=== PATIENT | female | born 1935 | race Caucasian/White ===

== ENCOUNTER 2017-01-20 20:34 | Emergency (ER) | payer MEDICARE, BC ==
[~2017-01-20] VITALS: Ht 162.6 cm; Wt 70.0 kg
[2017-01-20 20:40] VITALS: BP 134/61; PULSE 62; RESP 18; TEMP 98.1; O2SAT 95
--- NOTE | 2017-01-20 21:38 | PD ---
HPI Chief Complaint: Injury Time Seen by Provider: 21:35 Travel History International Travel<30 days: No Contact w/Intl Traveler<30days: No Traveled to known affect area: No History of Present Illness HPI 81-year-old female that presents to the ED for evaluation of trip and fall. Patient had trip and fall in the parking lot. Patient landed on her left shoulder. Per patient she has 8 out of 10 pain in the shoulder. Pain with movement. Per patient the pain is to the elbow as well. No head injury or loss of consciousness. She does take blood thinners. No hip or knee pain. No ankle pain. No other medical issues. Patient was given morphine on the way here and did improve her pain to a 6. No numbness, tilling, weakness. No prior injuries to the shoulder. No back pain. No abdominal pain. No back pain or neck pain. He was put on a backboard and cervical collar by ambulance. PFSH Past Medical History Hx Anticoagulant Therapy: Yes ?: Not Social History Alcohol Use: No Tobacco Use: No Substance Use: No Allergies-Medications (Allergen,Severity, Reaction): Coded Allergies: No Known Allergies (Unverified , 01/20/17) Review of Systems Except as stated in HPI: all other systems reviewed are Neg Physical Exam Narrative GENERAL: SKIN: Warm and dry. HEAD: Atraumatic. Normocephalic. EYES: Pupils equal and round. No scleral icterus. No injection or drainage. ENT: No nasal bleeding or discharge. Mucous membranes pink and moist. Tongue is midline. No uvula deviation. NECK: Trachea midline. No JVD. CARDIOVASCULAR: Regular rate and rhythm. No murmurs, S3, S4. RESPIRATORY: No accessory muscle use. Clear to auscultation. Breath sounds equal bilaterally. GASTROINTESTINAL: Abdomen soft, non-tender, nondistended. Hepatic and splenic margins not palpable. MUSCULOSKELETAL: Extremities without clubbing, cyanosis, or edema. No obvious deformities. Full range of motion of all extremities with exception of the left shoulder. Patient does have pain with abduction. Tenderness to palpation as well as bruising noted on the left shoulder. Pupils pulses bilaterally. Full range of motion of the wrist and hand. NEUROLOGICAL: Awake and alert. No obvious cranial nerve deficits. Motor grossly within normal limits. Five out of 5 muscle strength in the arms and legs. Normal speech. PSYCHIATRIC: Appropriate mood and affect; insight and judgment normal. Data Data Last Documented VS Vital Signs Date Time Temp Pulse Resp B/P Pulse Ox O2 Delivery O2 Flow Rate FiO2 01/20/17 21:42 98 01/20/17 20:40 98.1 62 18 134/61 Orders Forearm (2vws) (01/20/17 20:45) Humerus (Min 2vws) (01/20/17 20:45) Ice/Cold Pack (01/20/17 20:45) Chest, Single Ap (01/20/17 20:45) Ct Brain W/O Iv Contrast(Rout) (01/20/17 20:46) Ct Cerv Spine W/O Contrast (01/20/17 20:46) Splint Or Brace Apply/Monitor (01/20/17 21:54) Morphine Inj (Morphine Inj) (01/20/17 22:15) Ondansetron Inj (Zofran Inj) (01/20/17 22:15) MDM Medical Decision Making Medical Screen Exam Complete: Yes Emergency Medical Condition: Yes Medical Record Reviewed: Yes Interpretation(s) Last Impressions Chest X-Ray 01/20/172044 Signed Impressions: Service Date/Time: Friday, January 20, 2017 21:19 - CONCLUSION: 1. Left humeral head fracture. 2. Prominent retrocardiac density may represent hiatus hernia. 3. No evidence of pneumothorax. Aba Infante MD Differential Diagnosis Fracture versus sprain versus strain versus bruise versus contusion Narrative Course 81-year-old female that presents to the ED for evaluation of trip and fall. Patient was properly examined and was found to have signs and symptoms of possible bony injuries. Imaging and x-rays were ordered. This showed small humeral head fracture. Case will be signed out to my attending pending imaging results including CAT scan that have not been read at the writing of this note. Diagnosis Primary Impression: Fracture of humeral head, left, closed Qualified Code: S42.292A - Fracture of humeral head, left, closed, initial encounter Jesus Hines Jan 20, 2017 21:37
--- NOTE | 2017-01-20 22:03 | RADRPT ---
EXAM DATE/TIME: 01/20/2017 21:19 [facility] COMPARISON: No previous studies available for comparison. INDICATIONS : Fell onto shoulder. MEDICAL HISTORY : Chronic obstructive pulmonary disease. AFIB SURGICAL HISTORY : None. ENCOUNTER: Initial ACUITY: 1 day PAIN SCORE: 0/10 LOCATION: Bilateral chest FINDINGS: No consolidative infiltrate seen. No evidence of pleural effusion. There is a prominent retrocardia c opacity which measures in excess of 7 cm, possibly representing a hiatus hernia. The heart is norm al size. Both hemidiaphragms well delineated. Left humeral head fracture. CONCLUSION: 1. Left humeral head fracture. 2. Prominent retrocardiac density may represent hiatus hernia. 3. No evidence of pneumothorax. Aba Infante MD on January 20, 2017 at 22:01 Board Certified Radiologist. This report was verified electronically.
[2017-01-20] MEDS ORDERED: ONDANSETRON HCL 4 MG/2 ML VIAL IV PUSH ONE (22:15)
[2017-01-20] MEDS ORDERED: MORPHINE SULFATE 4 MG/ML INJ IV PUSH ONE (22:15)
--- NOTE | 2017-01-20 22:34 | RADRPT ---
EXAM DATE/TIME: 01/20/2017 21:23 [facility] COMPARISON: No previous studies available for comparison. INDICATIONS : Patient fell onto shoulder. MEDICAL HISTORY : Chronic obstructive pulmonary disease. SURGICAL HISTORY : None. ENCOUNTER: Initial ACUITY: 1 day PAIN SCORE: 10/10 LOCATION: Left Shoulder. FINDINGS: There are several fractures in the proximal humerus involving the greater tuberosity, anatomic head, surgical head, and lesser tuberosity. There is moderate angulation of the humeral head posteriorly. No definite evidence of dislocation. The glenoid appears grossly intact. CONCLUSION: Comminuted fracture of the proximal humerus. Aba Infante MD on January 20, 2017 at 22:31 Board Certified Radiologist. This report was verified electronically.
--- NOTE | 2017-01-20 22:47 | RADRPT ---
EXAM DATE/TIME: 01/20/2017 21:37 [facility] COMPARISON: No previous studies available for comparison. INDICATIONS : Patient fell onto shoulder. MEDICAL HISTORY : Chronic obstructive pulmonary disease. SURGICAL HISTORY : None. ENCOUNTER: Initial ACUITY: 1 day PAIN SCORE: 10/10 LOCATION: Left Shoulder. FINDINGS: Two view examination of the left forearm demonstrates no evidence of fracture or dislocation. Bony m ineralization is normal. The soft tissue structures are intact. CONCLUSION: The radius and ulna appear grossly intact. Aba Infante MD on January 20, 2017 at 22:45 Board Certified Radiologist. This report was verified electronically.
--- NOTE | 2017-01-20 22:52 | RADRPT ---
EXAM DATE/TIME: 01/20/2017 21:37 [facility] COMPARISON: No previous studies available for comparison. INDICATIONS : Trauma, trip and fall. RADIATION DOSE: 42.50 CTDIvol (mGy) MEDICAL HISTORY : None SURGICAL HISTORY : None. ENCOUNTER: Initial ACUITY: 1 day PAIN SCALE: 3/10 LOCATION: neck TECHNIQUE: Volumetric scanning of the cervical spine was performed. Multiplanar reconstructions in the sagittal, coronal and oblique axial planes were performed. Using automated exposure control and adjustment o f the mA and/or kV according to patient size, radiation dose was kept as low as reasonably achievable to obtain optimal diagnostic quality images. DICOM format image data is available electronically f or review and comparison. FINDINGS: There is straightening of the cervical lordosis from C2-C5. At C5-6, there is marked narrowing of th e interspace and prominent sclerosis on both sides with prominent anterior and posterior osteophytes. There is mild retrolisthesis of C5 with respect to C6, approximately 2 mm. No evidence of acute fr acture. The posterior elements are in alignment with moderate hypertrophic changes seen in the facet joints C3-C5. The spinous processes are intact. Atlantoaxial articulation is intact. On axial imaging, there is evidence of mild bony neuroforaminal stenosis on the left side at C4-5, mo derate stenosis at C5-6 bilaterally and mild stenosis on the right at C6-7. No fractures seen. Vacu um phenomenon is present adjacent to the right costovertebral junction of T1. CONCLUSION: 1. No evidence of acute fracture. 2. 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 3. Moderate bilateral bony neural foraminal stenosis as described above. Aba Infante MD on January 20, 2017 at 22:45 Board Certified Radiologist. This report was verified electronically.
--- NOTE | 2017-01-20 22:52 | RADRPT ---
EXAM DATE/TIME: 01/20/2017 21:37 [facility] COMPARISON: No previous studies available for comparison. INDICATIONS : Trauma, trip and fall. RADIATION DOSE: 49.83 CTDIvol (mGy) MEDICAL HISTORY : None SURGICAL HISTORY : None. ENCOUNTER: Initial ACUITY: 1 day PAIN SCALE: 3/10 LOCATION: cranial TECHNIQUE: Multiple contiguous axial images were obtained of the head. Using automated exposure control and adj ustment of the mA and/or kV according to patient size, radiation dose was kept as low as reasonably a chievable to obtain optimal diagnostic quality images. DICOM format image data is available electro nically for review and comparison. FINDINGS: CEREBRUM: The ventricles are normal for age. No evidence of midline shift, mass lesion, hemorrhage or acute in farction. No extra-axial fluid collections are seen. POSTERIOR FOSSA: The cerebellum and brainstem are intact. The 4th ventricle is midline. The cerebellopontine angle i s unremarkable. EXTRACRANIAL: The visualized portion of the orbits is intact. SKULL: The calvaria is intact. No evidence of skull fracture. CONCLUSION: Age-appropriate atrophy. No acute findings. Aba Infante MD on January 20, 2017 at 22:50 Board Certified Radiologist. This report was verified electronically.
--- NOTE | 2017-01-20 22:54 | PD ---
Data Data Last Documented VS Vital Signs Date Time Temp Pulse Resp B/P Pulse Ox O2 Delivery O2 Flow Rate FiO2 01/20/17 21:42 98 01/20/17 20:40 98.1 62 18 134/61 Orders Forearm (2vws) (01/20/17 20:45) Humerus (Min 2vws) (01/20/17 20:45) Ice/Cold Pack (01/20/17 20:45) Chest, Single Ap (01/20/17 20:45) Ct Brain W/O Iv Contrast(Rout) (01/20/17 20:46) Ct Cerv Spine W/O Contrast (01/20/17 20:46) Splint Or Brace Apply/Monitor (01/20/17 21:54) Morphine Inj (Morphine Inj) (01/20/17 22:15) Ondansetron Inj (Zofran Inj) (01/20/17 22:15) Sling Cradle Arm (01/20/17 ) MDM Medical Record Reviewed: Yes Supervised Visit with DAWIT: No Interpretation(s) Last Impressions Head CT 01/20/172045 Signed Impressions: Service Date/Time: Friday, January 20, 2017 21:37 - CONCLUSION: Age-appropriate atrophy. No acute findings. Aba Infante MD Cervical Spine CT 01/20/172045 Signed Impressions: Service Date/Time: Friday, January 20, 2017 21:37 - CONCLUSION: 1. No evidence of acute fracture. 2. Advanced discogenic degenerative changes at the C5-6 level with marked interspace narrowing, prominent sclerosis of the adjacent vertebral bodies, and mild retrolisthesis of C5 with respect to C6. 3. Moderate bilateral bony neural foraminal stenosis as described above. Aba Infante MD Radius/Ulna X-Ray 01/20/172044 Signed Impressions: Service Date/Time: Friday, January 20, 2017 21:37 - CONCLUSION: The radius and ulna appear grossly intact. Aba Infante MD Humerus X-Ray 01/20/172044 Signed Impressions: Service Date/Time: Friday, January 20, 2017 21:23 - CONCLUSION: Comminuted fracture of the proximal humerus. Aba Infante MD Chest X-Ray 01/20/172044 Signed Impressions: Service Date/Time: Friday, January 20, 2017 21:19 - CONCLUSION: 1. Left humeral head fracture. 2. Prominent retrocardiac density may represent hiatus hernia. 3. No evidence of pneumothorax. Aba Infante MD Narrative Course During the course of the patients emergency department visit, the patients history, examination, and differential diagnosis were reviewed with the patient. The patient had imaging ordered. The patient's case was checked out to me by Kameron, the physician lpn or medical assistant. Please see his complete history and physical. The patient's case was checked out to me at the conclusion of his shift pending CT scan of the head and neck results being read by the radiologist. The patient was initially provided morphine 4 mg IV, Zofran 4 mg IV. Radiology studies were reviewed and remarkable for an x-ray of the humerus reveals a comminuted proximal humerus fracture. CT scan of the brain showed no acute abnormality. CT scan of the C-spine showed degenerative changes. The patient had no acute fracture or other abnormality. The patient's results were discussed with her. The patient is currently visiting from [place]. She will follow-up with her orthopedic physician when she returns back home later this week. The patient will be discharged home with a prescription for Lortab. The patient was placed in a shoulder sling on the left side. The patient is resting comfortably and feels better, is alert and in no distress. The patients results and examination findings were discussed with the patient. The repeat examination is unremarkable and benign. The history, exam, diagnostic testing, and current condition do not suggest any significant pathology to warrant further testing, continued ED treatment, admission, or surgical evaluation at this point. The vital signs have been stable. The patient does not have uncontrollable pain, intractable vomiting, or other significant symptoms. The patient's condition is stable and appropriate for discharge. The patient will pursue further outpatient evaluation with a primary care physician or other designated or consulting physician as indicated in the discharge instructions. The patient expressed understanding and was agreeable with this plan. Diagnosis Primary Impression: Fracture of humeral head, left, closed Qualified Code: S42.292A - Fracture of humeral head, left, closed, initial encounter Referrals: Orthopedist 3 days Patient Instructions: General Instructions, Proximal Humerus Fracture (ED) Med/Other Pt SpecificInfo: Prescription(s) given Scripts Hydrocodone-Acetaminophen (Lortab)5-325 Mg Tab1 Tab PO Q6H PRN (PAIN) #12 TAB Ref 0 Prov:Lucia Bergman MD 01/21/17 Disposition: 01 DISCHARGE HOME Condition: Stable Lucia Bergman MD Jan 20, 2017 22:54
[2017-01-21] MEDS ORDERED: HYDR-3533 PO (00:40)
== END 2017-01-21 09:32 | disposition home or self-care (01) ==
LOC: NEPC 20:34
DX: S42.292A Other displaced fracture of upper end of left humerus, initial encounter for closed fracture (principal); W01.0XXA Fall on same level from slipping, tripping and stumbling without subsequent striking against object, initial encounter; Y92.481 Parking lot as the place of occurrence of the external cause; Z79.01 Long term (current) use of anticoagulants
CPT/HCPCS: 70450; 71010; 72125; 73060; 73090; 96374; 96375; 99285; J2270; J2405